=== PATIENT | female | born 1960 | race Caucasian/White ===

== ENCOUNTER 2017-02-21 20:51 | Emergency (ER) | payer SELFPAY ==
--- NOTE | 2017-02-21 21:36 | RAD ---
UPRIGHT PORTABLE CHEST ONE VIEW 02/21/17 HISTORY: 56-year-old female with dyspnea and shortness of breath for three days. Patient's large body habitus somewhat lowers the sensitivity of this study. Heart size is within nor mal limits. There is no confluent pneumonia, overt edema or pleural effusion. Stable from prior 04/22 study. IMPRESSION: No acute intrathoracic disease. No evidence of pneumonia or acute edema. POS: [facility]
[2017-02-21 21:39] LABS: #Eosinphils 0.2 thou/uL (0.0-0.7); #Monocytes 0.6 thou/uL (0.11-0.59); #Neutrophils 5.3 thou/uL (1.40-6.50); %Basophils 0.4 % (0.0-1.0); %Eosinophils 2.7 % (0.0-10.0); %Lymphocytes 24.4 % (21.0-51.0); %Monocytes 7.8 % (0.0-10.0); Hematocrit 42.7 % (36.0-47.0); Mean Platelet Volume 7.2 fL (7.4-10.4); Red Blood Cell (RBC) Count 4.71 mill/uL (4.20-5.40); White Blood Cell (WBC) Count 8.2 thou/uL (4.8-10.8)
[2017-02-21 22:00] LABS: ALT (SGPT) 26 U/L (8-55); AST (SGOT) 18 U/L (5-34); Alkaline Phosphatase 97 U/L (40-150); Anion Gap 14 mmol/L (10-20); BUN (Urea Nitrogen) 16 mg/dL (9.8-20.1); Bilirubin, Total 0.4 mg/dL (0.2-1.2); Calc. Creatinine Clearance 0 mL/min (70-130); Calcium 9.6 mg/dL (7.8-10.44); Carbon Dioxide 23 mmol/L (22-29); Chloride 109 mmol/L (98-107); Estimated GFR-MDRD 70; Globulin 3.5 g/dL (2.4-3.5); Protein, Total 7.2 g/dL (6.0-8.3)
[2017-02-21 23:03] LABS: Bilirubin Negative (Negative); Blood, Urine Trace (Negative); Glucose, Urine (Dipstick) Negative (Negative); Ketone, Urine Negative (Negative); Nitrite Positive (Negative); Protein, Urine (Dipstick) Trace mg/dL (Neg-Trace)
[2017-02-21 23:05] LABS: Bacteria/HPF 4+ HPF (None Seen); Hyaline Casts/LPF 0-3 HYALINE CAST LPF (0-3 Hyaline); Squamous Epithelial 0-3 HPF (0-3); WBC/HPF 21-50 HPF (0-3)
[2017-02-22] MEDS ORDERED: Sodium Chloride 0.9% 100 ML ONE (02:47)
[2017-02-22] MEDS ORDERED: cefTRIAXone\\ROCEPHIN 1 GM VIAL ONE (02:47)
--- NOTE | 2017-02-22 06:19 | ULT ---
PRELIMINARY REPORT/[facility]/EMERGENCY AFTER HOURS PROCEDURE: EXAM: US Duplex Bilateral Lower Extremity Veins CLINICAL HISTORY: 56 years old, female; Pain and signs and symptoms; Edema, localized; Lower extremity, bilateral; Leg , upper and leg, lower TECHNIQUE: Real-time ultrasound scan of the veins of the bilateral lower extremities with color Doppler flow, s pectral waveform analysis and compression. COMPARISON: No relevant prior studies available. FINDINGS: Right leg: No visible clot in the included veins. The included veins appear normally compressible. Duplex Doppler evaluation demonstrates flow in the evaluated veins. Left leg: No visible clot in the included veins. The included veins appear normally compressible. Duplex Doppler evaluation demonstrates flow in the evaluated veins. IMPRESSION: No evidence of acute right lower extremity DVT. No evidence of acute left lower extremity DVT. Thank you for allowing us to participate in the care of your patient. Dictated and Authenticated by: Franco Lai MD 02/22/2017 1:05 AM Central Time ([place] \T\ [place]) FINAL REPORT ON OVERNIGHT [facility] STUDY I agree with the preliminary report provided. No evidence of DVT within the right or left lower ext remity. POS: [facility]
== END 2017-02-22 03:10 | disposition short-term general hospital (02) ==
LOC: ERS 20:51
DX: R06.00 Dyspnea, unspecified (principal); R07.9 Chest pain, unspecified; N39.0 Urinary tract infection, site not specified; L53.9 Erythematous condition, unspecified; E66.01 Morbid (severe) obesity due to excess calories; I10 Essential (primary) hypertension; J45.909 Unspecified asthma, uncomplicated; M32.9 Systemic lupus erythematosus, unspecified; F32.9 Major depressive disorder, single episode, unspecified; Z79.52 Long term (current) use of systemic steroids; Z79.82 Long term (current) use of aspirin; Z79.899 Other long term (current) drug therapy
CPT/HCPCS: 36415; 71010; 80053; 81003; 81015; 83880; 85025; 85379; 93005; 93970; 94760; 96365; J0696; J7050

== ENCOUNTER 2018-08-24 13:30 | Emergency (ER) | payer OTHER, SELFPAY ==
[2018-08-24 14:34] LABS: #Eosinphils 0.1 thou/uL (0.0-0.7); #Lymphocytes 2.4 thou/uL (1.20-3.40); #Monocytes 0.8 thou/uL (0.11-0.59); %Basophils 0.3 % (0.0-1.0); %Eosinophils 1.3 % (0.0-10.0); %Lymphocytes 22.8 % (21.0-51.0); %Monocytes 8.1 % (0.0-10.0); %Neutrophils 67.6 % (42.0-75.0); Hemoglobin 12.9 g/dL (12.0-16.0); Mean Corpuscular Hemoglobin 28.8 pg (27.0-31.0); Mean Corpuscular Volume 92.7 fL (78.0-98.0); Platelet Count 227 thou/uL (130-400); RBC Distribution Width 12.7 % (11.5-14.5); Red Blood Cell (RBC) Count 4.48 mill/uL (4.20-5.40); White Blood Cell (WBC) Count 10.4 thou/uL (4.8-10.8)
--- NOTE | 2018-08-24 15:27 | ULT ---
FExam: Left lower extremity venous ultrasound with Doppler HISTORY: Erythema. Swelling. COMPARISON: 07/22/2003. TECHNIQUE: Grayscale, color flow, Doppler imaging and spectral waveform analysis performed of the lef lower extremity venous system. FINDINGS: Markedly limited study. There is evidence of distal lower extremity erythema and edema. Pain while pe rforming the scan. There is compressibility and flow in the common femoral vein, profunda femoral vein, and greater saph enous vein. The proximal femoral vein is not visualized. There is lack of compressibility and possibl e partial flow involving the mid and distal femoral vein. A partially occlusive thrombus cannot be ex cluded. Limited evaluation of the posterior tibial vein. IMPRESSION: 1. Markedly suboptimal exam. 2. Possible partially nonocclusive thrombus in the mid to distal femoral vein. 3. Markedly limited evaluation of the posterior tibial vein. Transcribed Date/Time: 08/24/2018 3:34 PM
[2018-08-24 16:03] LABS: Albumin 3.6 g/dL (3.5-5.0)
[2018-08-24 16:04] LABS: Chloride 108 mmol/L (98-107); Potassium 4.1 mmol/L (3.5-5.1); Sodium 143 mmol/L (136-145)
[2018-08-24 16:05] LABS: Calcium 9.2 mg/dL (7.8-10.44); Glucose 116 mg/dL (70-105)
[2018-08-24 16:06] LABS: Globulin 3.4 g/dL (2.4-3.5)
[2018-08-24 16:07] LABS: Anion Gap 11 mmol/L (10-20); Bilirubin, Total 0.5 mg/dL (0.2-1.2); Carbon Dioxide 28 mmol/L (22-29)
[2018-08-24 16:08] LABS: Alkaline Phosphatase 92 U/L (40-150)
[2018-08-24 16:09] LABS: Calc. Creatinine Clearance 0 mL/min (70-130); Estimated GFR-MDRD 78
[2018-08-24 16:10] LABS: AST (SGOT) 17 U/L (5-34); BUN (Urea Nitrogen) 17 mg/dL (9.8-20.1)
[2018-08-24 16:11] LABS: ALT (SGPT) 22 U/L (8-55)
== END 2018-08-24 16:03 | disposition home or self-care (01) ==
LOC: ERS 13:30
DX: S80.12XA Contusion of left lower leg, initial encounter (principal); I10 Essential (primary) hypertension; F32.9 Major depressive disorder, single episode, unspecified; J45.909 Unspecified asthma, uncomplicated; W19.XXXA Unspecified fall, initial encounter
CPT/HCPCS: 36415; 80053; 85025

== ENCOUNTER 2018-10-27 18:46 | Emergency (ER) | payer SELFPAY ==
[2018-10-27] MEDS ORDERED: Lidocaine 1% w/Epinephrine 1:100K 20 ML VIAL ONE (19:17)
[2018-10-27] MEDS ORDERED: traMADol HCl 50 MG TAB ONE (19:17)
== END 2018-10-27 21:15 | disposition home or self-care (01) ==
LOC: ERS 18:46
DX: S81.811A Laceration without foreign body, right lower leg, initial encounter (principal); J44.9 Chronic obstructive pulmonary disease, unspecified; I10 Essential (primary) hypertension; F32.9 Major depressive disorder, single episode, unspecified; Z79.899 Other long term (current) drug therapy; W20.8XXA Other cause of strike by thrown, projected or falling object, initial encounter
CPT/HCPCS: 12002; J2001